=== PATIENT | male | born 1965 | race Two or more races ===

== ENCOUNTER 2019-06-16 19:20 | Emergency (ER) | payer BC ==
[2019-06-16] MEDS ORDERED: Lidocaine 1% with EPINEPHrine 1:100,000 10 ML MDV INJECT ONE (19:33)
--- NOTE | 2019-06-16 19:53 | EDM.PDOC ---
ED HPI GENERAL MEDICAL PROBLEM - General Chief Complaint: Skin Complaint Stated Complaint: LUMPS ON THE RIGHT SIDE AND LEFT LOWER ABDOMIN Time Seen by Provider: 06/16/19 19:30 Source of Information: Reports: Patient History Limitations: Reports: No Limitations - History of Present Illness INITIAL COMMENTS - FREE TEXT/NARRATIVE: HISTORY AND PHYSICAL: History of present illness: Patient is a 54-year-old male presents to the ED With concern of skin infection. Patient states he has had 2 spots, one on his lower abdomen and his chest for the past 3 days. He states the one on his abdomen drained blood and pus on it's own. He reports the spot on the right upper chest below his armpit has gotten larger with more redness around it. He denies fevers or chills. History of type 2 diabetes. Review of systems: As per history of present illness and below otherwise all systems reviewed and negative. Past medical history: As per history of present illness and as reviewed below otherwise noncontributory. Surgical history: As per history of present illness and as reviewed below otherwise noncontributory. Social history: No reported history of drug or alcohol abuse. Family history: As per history of present illness and as reviewed below otherwise noncontributory. Physical exam: General: Patient sitting comfortably in no acute distress and nontoxic appearing HEENT: Atraumatic, normocephalic, pupils reactive, negative for conjunctival pallor or scleral icterus, mucous membranes moist, throat clear, neck supple, nontender, trachea midline. No meningeal signs. Lungs: Clear to auscultation, breath sounds equal bilaterally, chest nontender. Heart: S1S2, regular, negative for clicks, rubs, or overt murmur. Abdomen: Soft, nondistended, nontender. Negative for masses or hepatosplenomegaly. Negative for costovertebral tenderness. No rigidity, rebound , guarding. Pelvis: Stable nontender. Genitourinary: Deferred. Rectal: Deferred. Skin: 2cm erythematous and fluctuant nodule to the right lateral chest wall just below the axilla with 3-4cm of surrounding erythema. There is a 1.5cm pinkish brown lesion to the left lower abdomen without and fluctuance, induration or drainage. Extremities: Atraumatic, negative for cords or calf pain. Neurovascular unremarkable. Neuro: Awake, alert, oriented. Cranial nerves II through XII unremarkable. Cerebellum unremarkable. Motor and sensory unremarkable throughout. Exam nonfocal. Notes: Diagnostics: none Therapeutics: I&D -see procedure note Prescriptions: Bactrim Impression: abscess, cellulitis Plan: Take antibiotic as instructed Follow up with primary care provider Return to ED as needed as discussed Definitive disposition and diagnosis as appropriate pending reevaluation and review of above. Arm Pain Score (Numeric/FACES): 9 - Related Data Allergies Allergy/AdvReac Type Severity Reaction Status Date / Time No Known Allergies Allergy Verified 06/16/19 19:28 Home Meds: Home Meds Canagliflozin [Invokana] 300 mg PO DAILY 07/23/15 [History] sitaGLIPtin Phos/Metformin HCl [Janumet Xr 50-1,000 mg Tablet] 1 tab PO DAILY [History] atorvaSTATin [Lipitor] 10 mg PO DAILY 05/13/17 [History] Past Medical History HEENT History: Reports: Impaired Vision Other HEENT History: glasses Cardiovascular History: Reports: High Cholesterol Musculoskeletal History: Reports: Fracture Other Musculoskeletal History: groin tear Endocrine/Metabolic History: Reports: Diabetes, Type II - Infectious Disease History Infectious Disease History: Reports: Chicken Pox, Influenza Social & Family History - Family History Family Medical History: Noncontributory - Tobacco Use Smoking Status *Q: Unknown Ever Smoked - Caffeine Use Caffeine Use: Reports: None - Recreational Drug Use Recreational Drug Use: No ED ROS GENERAL - Review of Systems Review Of Systems: Comprehensive ROS is negative, except as noted in HPI. ED EXAM, SKIN/RASH Exam: See Below (see dictation) ED SKIN PROCEDURES - I&D Site: right lateral chest wall just below axilla Skin Prep: Isopropyl Alcohol (Alcohol) Local Anesthesia: Lidocaine: 1% Plain Local Anesthetic Volume: 3cc Area Incised With: 11 Blade Drainage: Bloody, Moderate Amount Probed to Break Up Loculations: Yes Packed With: None Sterile Dressing: Adhesive Dressing Complications: No Course - Vital Signs Last Recorded V/S: Last Vital Signs Temp 96.9 F 06/16/19 19:29 Pulse 88 06/16/19 19:29 Resp 18 06/16/19 19:29 BP 171/95 H 06/16/19 19:29 Pulse Ox 98 06/16/19 19:29 - Orders/Labs/Meds Meds: Medications Discontinued Medications Generic Name Dose Route Start Last Admin Trade Name Adamaris PRN Reason Stop Dose Admin Lidocaine HCl Confirm 06/16/19 19:35 Xylocaine-Mpf 1% Administered 06/16/19 19:36 Dose 5 ml .ROUTE .STK-MED ONE Lidocaine HCl 5 ml 06/16/19 19:45 Xylocaine-Mpf 1% INJECT 06/16/19 19:46 ONETIME ONE Lidocaine/Epinephrine 10 ml 06/16/19 19:33 Xylocaine 1% With Epinephrine 1:100,000 INJECT 06/16/19 19:34 ONETIME ONE Departure - Departure Time of Disposition: 19:48 Disposition: Home, Self-Care 01 Condition: Good Clinical Impression: Abscess or cellulitis of chest wall - Discharge Information Additional Instructions: The following information is given to patients seen in the emergency department who are being discharged to home. This information is to outline your options for follow-up care. We provide all patients seen in our emergency department with a follow-up referral. The need for follow-up, as well as the timing and circumstances, are variable depending upon the specifics of your emergency department visit. If you don't have a primary care physician on staff, we will provide you with a referral. We always advise you to contact your personal physician following an emergency department visit to inform them of the circumstance of the visit and for follow-up with them and/or the need for any referrals to a consulting specialist. The emergency department will also refer you to a specialist when appropriate. This referral assures that you have the opportunity for follow-up care with a specialist. All of these measure are taken in an effort to provide you with optimal care, which includes your follow-up. Under all circumstances we always encourage you to contact your private physician who remains a resource for coordinating your care. When calling for follow-up care, please make the office aware that this follow-up is from your recent emergency room visit. If for any reason you are refused follow-up, please contact the [facility] Emergency Department at and asked to speak to the emergency department charge nurse. [facility] [address] [place] [address] [id number] [place] [address] Take antibiotic as instructed Follow up with primary care provider Return to ED as needed as discussed Sepsis Event Note - Evaluation Sepsis Screening Result: No Definite Risk - Focused Exam Vital Signs: Vital Signs Temp Pulse Resp BP Pulse Ox 06/16/19 19:29 96.9 F 88 18 171/95 H 98 Date Exam was Performed: 06/16/19 Time Exam was Performed: 19:48
[2019-06-16 20:35] VITALS: BP 167/88; PULSE 91
== END 2019-06-16 20:00 | disposition home or self-care (01) ==
LOC: MW.ED 19:20
DX: L03.313 Cellulitis of chest wall (principal); L02.213 Cutaneous abscess of chest wall; L98.8 Other specified disorders of the skin and subcutaneous tissue; E11.9 Type 2 diabetes mellitus without complications; E78.00 Pure hypercholesterolemia, unspecified; Z79.899 Other long term (current) drug therapy
CPT/HCPCS: 10060; 99282; J2001